=== PATIENT | female | born 1990 | race Caucasian/White ===

== ENCOUNTER → 2016-10-24 | Outpatient (REF) | payer OTHER ==
[~2016-10-24] MED LIST: VICO5TAB OR
== END ==
LOC: M LAB REF 14:53
PROVIDERS: ATTEND Physician Assistant
DX: R30.0 Dysuria (principal)

== ENCOUNTER → 2016-12-06 | Outpatient (REF) | payer OTHER | LOC: M LAB REF 20:46 | PROVIDERS: ATTEND Physician Assistant | DX: R30.0 Dysuria (principal) ==

== ENCOUNTER 2017-04-30 21:22 | Emergency (ER) | payer OTHER ==
[~2017-04-30] VITALS: Ht 162.6 cm; Wt 96.5 kg
[2017-04-30 21:22] VITALS: BP 137/83
[2017-04-30] MEDS ORDERED: EXCETAB81 PO (21:33)
[2017-04-30] MEDS ORDERED: AUGM875T28 PO (21:33)
[2017-04-30 22:55] LABS: BASO % 0.4 % (0.0-1.0); EOS # 0.1 K/mm3 (0.0-0.50); EOS % 1.4 % (0.0-3.0); LARGE UNSTAINED CELL # 0.1 K/mm3 (0.0-0.4); LARGE UNSTAINED CELL % 1.3 % (0.0-4.0); LYMPH # 2.4 K/mm3 (1.5-6.5); LYMPH % 22.4 % (24.0-44.0); MEAN CORPUSCULAR HEMOGLOBIN 26.1 pg (27.0-33.0); MEAN CORPUSCULAR HGB CONC 33.3 g/dl (32.0-36.5); MEAN CORPUSCULAR VOLUME 78.3 fl (80.0-96.0); MONO # 0.3 K/mm3 (0.0-0.8); MONO % 3.4 % (0.0-5.0); NEUTROPHILS # 7.1 K/mm3 (1.8-7.7); NEUTROPHILS % 71.1 % (36.0-66.0); PLATELET COUNT, AUTOMATED 224 k/mm3 (150-450); RED CELL DISTRIBUTION WIDTH 14.6 % (11.5-14.5)
--- NOTE | 2017-04-30 23:00 | REPUSA ---
Clinical history: Pain. Findings: Real-time transabdominal ultrasound images of the pelvis were obtained. There is a single l jimmie intrauterine . The crown rump length measures 1.1 cm. heart rate measures 143 bpm. There is no evidence of a subchorionic hemorrhage. There is a complex hypoechoic lesion in the left ovary, measuring 3.4 x 1.9 x 2.2 cm. The surrounding pelvic structures are unremarkable. There is no evidence of free fluid. Impression: 1. Single live intrauterine measuring 7 weeks 2 days by ultrasound measurements. hear t rate measures 143 bpm. 2. Left ovarian corpus luteum cyst.
[2017-04-30 23:45] LABS: ANION GAP 10 MEQ/L (8-16); BLOOD UREA NITROGEN 9 MG/DL (7-18); CALCIUM LEVEL 9.1 MG/DL (8.5-10.1); CARBON DIOXIDE LEVEL 23 MEQ/L (21-32); CHLORIDE LEVEL 101 MEQ/L (98-107); CREATININE FOR GFR 0.85 MG/DL (0.55-1.02); GLOMERULAR FILTRATION RATE > 60.0 (>60); GLUCOSE, FASTING 83 MG/DL (70-105); HCG, SERUM QUANTITATIVE 95136 MIU/ML; POTASSIUM SERUM 3.4 MEQ/L (3.5-5.1); SODIUM LEVEL 134 MEQ/L (136-145)
[2017-04-30] MEDS ORDERED: FLAG500T PO (23:56)
[2017-04-30] MEDS ORDERED: MACR100C43 PO (23:56)
[2017-05-01] MEDS ORDERED: NITROFURANTOIN (MACROBID) 100 MG CAP PO ONE
[2017-05-01] MEDS ORDERED: metroNIDAZOLE (FLAGYL) 500 MG TAB PO ONE
[2017-08-13] MEDS ORDERED: PRENTAB9 PO (02:51)
== END 2017-05-01 00:08 | disposition home or self-care (01) ==
LOC: M ED 21:22
DX: O99.89 Other specified diseases and conditions complicating pregnancy, childbirth and the puerperium (principal); N30.00 Acute cystitis without hematuria; N89.8 Other specified noninflammatory disorders of vagina; A59.9 Trichomoniasis, unspecified; Z3A.00 Weeks of gestation of pregnancy not specified; N83.12 Corpus luteum cyst of left ovary

== ENCOUNTER → 2017-06-14 | Outpatient (REF) | payer OTHER ==
[~2017-06-14] MED LIST changes: +AUGM875T28 PO; +EXCETAB81 PO; +FLAG500T PO; +MACR100C43 PO; +PRENTAB9 PO
== END ==
LOC: M LAB REF 19:15
PROVIDERS: ATTEND Physician Assistant
DX: N39.0 Urinary tract infection, site not specified (principal)

== ENCOUNTER 2017-07-05 00:39 | Emergency (ER) | payer OTHER ==
[~2017-07-05] VITALS: Ht 162.6 cm; Wt 90.0 kg
[~2017-07-05 00:39] MED LIST changes: -PRENTAB9 PO
--- NOTE | 2017-07-05 03:20 | REPUSA ---
CLINICAL HISTORY: Spotting. TECHNIQUE: Realtime sonographic images were obtained in multiple projections via TA approach. The exa mination was performed by the electroplating laborer and still images were submitted for interpretation. COMMENTS: Single, live intrauterine gestation. Transverse presentation. head is there to the maternal left position. The motion was identified. heart rate 150 beats per minute. Anterior placenta. Amniotic fluid appears within normal limits. No maternal adnexa or cul-de-sac abnormality. Estimated gestation age is 17 weeks. Estimated delivery date on 12/13/2017. Suboptimal evaluation of the facial profile/spine secondary to patient's age and position. IMPRESSION: Single, live intrauterine gestation. No abnormality is seen. Thank you for your kind referral of this patient.
[2017-07-05 03:21] VITALS: BP 115/73
[2017-08-13] MEDS ORDERED: PRENTAB9 PO (02:51)
== END 2017-07-05 03:36 | disposition home or self-care (01) ==
LOC: M ED 00:39
DX: O20.0 Threatened abortion (principal); Z3A.15 15 weeks gestation of pregnancy

== ENCOUNTER → 2017-08-13 | Outpatient (CLI) | payer OTHER ==
[~2017-08-13] VITALS: Ht 162.6 cm; Wt 93.0 kg
[~2017-08-13] MED LIST changes: +PRENTAB9 PO
[2017-08-13 02:11] VITALS: BP 112/68
== END ==
LOC: M LDO 01:48
PROVIDERS: ATTEND Obstetrics & Gynecology
DX: O26.892 Other specified pregnancy related conditions, second trimester (principal); Z3A.00 Weeks of gestation of pregnancy not specified

== ENCOUNTER → 2017-08-14 | Outpatient (REF) | payer OTHER ==
[2017-08-16 10:27] LABS: HBsAg Prenatal NEGATIVE (NEGATIVE)
== END ==
LOC: M LAB REF 16:18
PROVIDERS: ATTEND Obstetrics & Gynecology
DX: Z34.90 Encounter for supervision of normal pregnancy, unspecified, unspecified trimester (principal)

== ENCOUNTER → 2017-08-27 | Outpatient (REF) | payer OTHER ==
[~2017-08-27] MED LIST changes: +ACET50TA PO; +AMOX875T PO
== END ==
LOC: M LAB REF 17:01
PROVIDERS: ATTEND Physician Assistant
DX: R30.0 Dysuria (principal)

== ENCOUNTER 2017-09-02 20:18 | Outpatient (CLI) | payer OTHER ==
[~2017-09-02] VITALS: Ht 162.6 cm; Wt 94.2 kg
[~2017-09-02 20:18] MED LIST changes: -ACET50TA PO; -AMOX875T PO
[2017-09-02] MEDS ORDERED: ACET50TA PO (20:55)
[2017-09-02] MEDS ORDERED: AMOX875T PO (20:57)
[2017-09-02 21:34] VITALS: BP 124/73
== END 2017-09-02 21:45 | disposition home or self-care (01) ==
LOC: M LDO 20:18
PROVIDERS: ATTEND Obstetrics & Gynecology
DX: O26.852 Spotting complicating pregnancy, second trimester (principal); Z3A.25 25 weeks gestation of pregnancy; O23.42 Unspecified infection of urinary tract in pregnancy, second trimester

== ENCOUNTER → 2017-11-12 | Outpatient (REF) | payer OTHER | LOC: M LAB REF 13:32 | DX: Z34.83 Encounter for supervision of other normal pregnancy, third trimester (principal); Z3A.35 35 weeks gestation of pregnancy ==

== ENCOUNTER 2017-12-05 05:35 | Inpatient (IN) | payer OTHER ==
[2017-12-05] MEDS: LR 1,000 ML IV ×5 (06:00→16:46)
[2017-12-05 06:50] LABS: BASO # 0.1 10^3/uL (0.0-0.2); BASO % 0.4 % (0.0-1.0); EOS # 0.1 10^3/uL (0.0-0.50); EOS % 0.5 % (0.0-3.0); HEMATOCRIT 34.7 % (36.0-47.0); HEMOGLOBIN 10.8 g/dl (12.0-16.0); IMMATURE GRANULOCYTE % 0.9 % (0-3.0); LYMPH # 2.3 10^3/uL (1.5-6.5); LYMPH % 20.7 % (24.0-44.0); MEAN CORPUSCULAR HGB CONC 31.1 g/dl (32.0-36.5); MEAN CORPUSCULAR VOLUME 77.1 fl (80.0-96.0); MONO # 0.9 10^3/uL (0.0-0.8); MONO % 7.8 % (0.0-5.0); NEUTROPHILS # 7.8 10^3/uL (1.8-7.7); NEUTROPHILS % 69.7 % (36.0-66.0); PLATELET COUNT, AUTOMATED 176 10^3/uL (150-450); RED CELL DISTRIBUTION WIDTH 17.2 % (11.5-14.5); WHITE BLOOD COUNT 11.2 10^3/uL (4.0-10.0)
[2017-12-05] MEDS: BICITRA 30ML SOLN UDC PO (11:41)
[2017-12-05] MEDS ORDERED: MEASLES,MUMPS,RUBELLA VACCINE INJ (MMR-II) (90707) SC (12:15)
[2017-12-05] MEDS ORDERED: NORCO, ANEXSIA 5/325MG TABLET (HYDROcodone/ACETAMINOPHEN) PO (12:15)
[2017-12-05] MEDS ORDERED: RHOGAM 300 MCG (1500 IU) INJ (J2790) IM (12:15)
[2017-12-05] MEDS ORDERED: MOM 30ML SUSPENSION UDC PO (12:15)
[2017-12-05] MEDS ORDERED: METHYLERGONOVINE MALEATE 0.2 MG TAB PO (12:15)
[2017-12-05] MEDS ORDERED: METOCLOPRAMIDE INJ 10MG/2ML VIAL (J2765) IV ×2 (12:16→13:45)
[2017-12-05] MEDS ORDERED: NALOXONE INJ 0.4 MG/1 ML VIAL (J2310) IV ×2 (12:16)
[2017-12-05] MEDS ORDERED: NALBUPHINE HCL 10 MG/ML AMP (J2300) IV (12:16)
[2017-12-05] MEDS ORDERED: ONDANSETRON 4MG/2ML VIAL (J2405) IV ×2 (12:16→13:45)
[2017-12-05] MEDS ORDERED: MORPHINE PRES-FREE INJ 10 MG/10 ML VIAL (J2274) As Ordered (12:31)
[2017-12-05] MEDS ORDERED: KETOROLAC 60 MG/2 ML VIAL (J1885) As Ordered (12:31)
[2017-12-05] MEDS ORDERED: OXYTOCIN INJ 10 UNITS/ML VIAL (J2590) As Ordered (12:31)
[2017-12-05] MEDS ORDERED: ePHEDrine SULFATE 25 MG/5 ML(5MG/ML) SYRINGE As Ordered (12:31)
[2017-12-05] MEDS ORDERED: PHENYLephrine HCL 500 MCG/5 ML (100MCG/ML) SYRINGE (J2370) As Ordered (12:31)
[2017-12-05] MEDS ORDERED: ONDANSETRON 4MG/2ML VIAL (J2405) As Ordered (12:31)
[2017-12-05 13:08] LABS: CORD GAS ABE A -3.8; CORD GAS HCO3 A 24.1 MEQ/L; CORD GAS O2 SAT A 46.4 %; CORD GAS PCO2 A 54.6 mmHg; CORD GAS PH A 7.263 UNITS; CORD GAS SBC A 20.1 MEQ/L; CORD GAS TCO2 A 25.8 MEQ/L
[2017-12-05 13:11] LABS: CORD GAS ABE V -5.1; CORD GAS HCO3 V 20.9 MEQ/L; CORD GAS O2 SAT V 58.5 %; CORD GAS PCO2 V 42.1 mmHg; CORD GAS PH V 7.314 UNITS; CORD GAS PO2 V 26.8 mmHg; CORD GAS SBC V 19.4 MEQ/L; CORD GAS TCO2 V 22.2 MEQ/L
[2017-12-05] MEDS ORDERED: fentaNYL 100 MCG/2 ML INJECTION (J3010) IV (13:45)
[2017-12-05] MEDS ORDERED: PERCOCET 5MG/325MG TAB PO (13:45)
[2017-12-05] MEDS ORDERED: diphenhydrAMINE INJ 50MG/ML VIAL (J1200) IV (13:45)
[2017-12-05] MEDS ORDERED: KETOROLAC 30 MG/ML VIAL (J1885) IV (13:45)
[2017-12-05] MEDS ORDERED: MEPERIDINE INJ 25 MG/ML VIAL (J2175) IV (13:45)
[2017-12-05] MEDS: DOCUSATE SODIUM 100 MG CAP PO ×2 (16:44→21:46)
[2017-12-05] MEDS: PRENATAL VITAMINS CHEWABLE TABLET PO (16:45)
[2017-12-05] MEDS: IBUPROFEN 800 MG TAB PO (21:47)
[2017-12-06] MEDS: IBUPROFEN 800 MG TAB PO ×3 (06:33→21:44)
[2017-12-06] MEDS ORDERED: NORCO, ANEXSIA 5/325MG TABLET (HYDROcodone/ACETAMINOPHEN) PO (07:15)
[2017-12-06 07:58] LABS: HEMATOCRIT 28.4 % (36.0-47.0); MEAN CORPUSCULAR HEMOGLOBIN 23.9 pg (27.0-33.0); MEAN CORPUSCULAR HGB CONC 30.6 g/dl (32.0-36.5); PLATELET COUNT, AUTOMATED 161 10^3/uL (150-450); RED BLOOD COUNT 3.64 10^6/uL (4.00-5.40); RED CELL DISTRIBUTION WIDTH 17.2 % (11.5-14.5); WHITE BLOOD COUNT 11.4 10^3/uL (4.0-10.0)
[2017-12-06 08:07] LABS: HEMOGLOBIN 8.7 g/dl (12.0-16.0)
[2017-12-06] MEDS: DOCUSATE SODIUM 100 MG CAP PO ×2 (09:49→21:43)
[2017-12-06] MEDS: PRENATAL VITAMINS CHEWABLE TABLET PO (09:49)
[2017-12-06] MEDS: NORCO, ANEXSIA 5/325MG TABLET (HYDROcodone/ACETAMINOPHEN) PO ×2 (12:34→20:15)
[2017-12-06] MEDS: LR 1,000 ML IV ×4 (19:29→22:20)
[2017-12-07] MEDS: LR 1,000 ML IV (04:07)
[2017-12-07] MEDS: IBUPROFEN 800 MG TAB PO ×2 (06:00→14:34)
[2017-12-07] MEDS: DOCUSATE SODIUM 100 MG CAP PO (08:21)
[2017-12-07] MEDS: PRENATAL VITAMINS CHEWABLE TABLET PO (08:21)
[2017-12-07] MEDS: medroxyPROGESTERone ACET IM SUSP 150 MG/ML VIAL (J1050) IM (13:24)
[2017-12-07] MEDS ORDERED: ADACEL/BOOSTRIX VACCINE (DIPHTH/PERTUSS/ACELL/TETANUS)0.5ML SYR (90715) IM (14:45)
== END 2017-12-07 14:56 | disposition home or self-care (01) | DRG 540 ==
LOC: M LDI 05:35 → M OBS 15:07
PROVIDERS: Obstetrics & Gynecology
PROC: 10D00Z1 Extraction of Products of Conception, Low, Open Approach (ICD-10-PCS; principal; 2017-12-05 07:30)
DX: O34.211 Maternal care for low transverse scar from previous cesarean delivery (principal); O99.824 Streptococcus B carrier state complicating childbirth; Z37.0 Single live birth; Z3A.39 39 weeks gestation of pregnancy

== ENCOUNTER 2018-02-23 22:12 | Emergency (ER) | payer OTHER | END 2018-02-24 00:11 | disposition home or self-care (01) | LOC: M ED 02-24 00:11 | DX: K08.89 Other specified disorders of teeth and supporting structures (principal); F41.1 Generalized anxiety disorder; F17.210 Nicotine dependence, cigarettes, uncomplicated; Z79.2 Long term (current) use of antibiotics | CPT/HCPCS: 99283 ==

== ENCOUNTER 2018-03-26 23:04 | Emergency (ER) | payer OTHER ==
[2018-03-27] MEDS: MAGNESIUM CITRATE 300 ML BTL PO (00:15)
== END 2018-03-27 00:25 | disposition home or self-care (01) ==
LOC: M ED 03-27 00:25
DX: K62.5 Hemorrhage of anus and rectum (principal); K59.00 Constipation, unspecified; F41.9 Anxiety disorder, unspecified; Z79.2 Long term (current) use of antibiotics
CPT/HCPCS: 74019

== ENCOUNTER 2018-04-04 19:26 | Emergency (ER) | payer OTHER | END 2018-04-04 19:30 | disposition home or self-care (01) | LOC: M ED 19:26 | DX: R07.89 Other chest pain (principal); R00.0 Tachycardia, unspecified; K21.9 Gastro-esophageal reflux disease without esophagitis; F41.9 Anxiety disorder, unspecified | CPT/HCPCS: 93005 ==

== ENCOUNTER 2018-04-06 17:11 | Emergency (ER) | payer OTHER | END 2018-04-06 19:29 | disposition home or self-care (01) | LOC: M ED 17:11 | DX: R07.89 Other chest pain (principal); F41.9 Anxiety disorder, unspecified; R00.0 Tachycardia, unspecified; R94.31 Abnormal electrocardiogram [ECG] [EKG]; Z87.891 Personal history of nicotine dependence; Z79.899 Other long term (current) drug therapy | CPT/HCPCS: 93005 ==

== ENCOUNTER → 2018-04-07 | Outpatient (REF) | payer OTHER ==
[2018-04-07 19:51] LABS: BASO # 0.1 10^3/uL (0.0-0.2); EOS # 0.1 10^3/uL (0.0-0.50); EOS % 0.8 % (0.0-3.0); HEMATOCRIT 43.9 % (36.0-47.0); HEMOGLOBIN 13.7 g/dl (12.0-15.5); IMMATURE GRANULOCYTE % 0.3 % (0-3.0); LYMPH # 2.2 10^3/uL (1.5-6.5); LYMPH % 28.1 % (24.0-44.0); MEAN CORPUSCULAR HEMOGLOBIN 23.5 pg (27.0-33.0); MEAN CORPUSCULAR HGB CONC 31.2 g/dl (32.0-36.5); MEAN CORPUSCULAR VOLUME 75.2 fl (80.0-96.0); MONO # 0.5 10^3/uL (0.0-0.8); MONO % 6.2 % (0.0-5.0); NEUTROPHILS # 5.1 10^3/uL (1.8-7.7); NEUTROPHILS % 63.6 % (36.0-66.0); PLATELET COUNT, AUTOMATED 217 10^3/uL (150-450); RED BLOOD COUNT 5.84 10^6/uL (4.00-5.40); RED CELL DISTRIBUTION WIDTH 16.8 % (11.5-14.5)
[2018-04-07 20:15] LABS: ALBUMIN 4.5 GM/DL (3.2-5.2); ALBUMIN/GLOBULIN RATIO 1.13 (1.00-1.93); ALKALINE PHOSPHATASE 102 U/L (45-117); ALT/SGPT 51 U/L (12-78); ANION GAP 14 MEQ/L (8-16); AST/SGOT 23 U/L (7-37); BILIRUBIN,TOTAL 0.5 MG/DL (0.2-1.0); BLOOD UREA NITROGEN 10 MG/DL (7-18); CALCIUM LEVEL 9.6 MG/DL (8.5-10.1); CARBON DIOXIDE LEVEL 22 MEQ/L (21-32); CHLORIDE LEVEL 106 MEQ/L (98-107); CHOLESTEROL LEVEL 150 MG/DL (<200); CHOLESTEROL RISK RATIO 3.846 (<5); CPK CREATINE PHOSPHOKINASE 61 U/L (26-192); CREATININE FOR GFR 0.91 MG/DL (0.55-1.30); GLOMERULAR FILTRATION RATE > 60.0 (>60); GLUCOSE, FASTING 75 MG/DL (70-100); HDL CHOLESTEROL 39 MG/DL (>40); LDL CHOLESTEROL 96.6 MG/DL (<100); NON-HDL-C 111 MG/DL; POTASSIUM SERUM 4.2 MEQ/L (3.5-5.1); SODIUM LEVEL 142 MEQ/L (136-145); TOTAL PROTEIN 8.5 GM/DL (6.4-8.2); TRIGLYCERIDES LEVEL 72 MG/DL (<150); TROPONIN I < 0.02 NG/ML (< 0.10)
[2018-04-07 20:23] LABS: ESTIMATED AVERAGE GLUCOSE 103 MG/DL (60-110); HEMOGLOBIN A1c 5.2 %
== END ==
LOC: M LAB REF 17:52
DX: R07.9 Chest pain, unspecified (principal)

== ENCOUNTER 2018-04-08 22:42 | Emergency (ER) | payer OTHER ==
[2018-04-08 23:41] LABS: BASO # 0.1 10^3/uL (0.0-0.2); BASO % 0.9 % (0.0-1.0); EOS # 0.1 10^3/uL (0.0-0.50); EOS % 0.6 % (0.0-3.0); HEMATOCRIT 41.6 % (36.0-47.0); HEMOGLOBIN 13.4 g/dl (12.0-15.5); IMMATURE GRANULOCYTE % 0.2 % (0-3.0); LYMPH # 2.3 10^3/uL (1.5-6.5); LYMPH % 27.3 % (24.0-44.0); MEAN CORPUSCULAR HEMOGLOBIN 23.8 pg (27.0-33.0); MEAN CORPUSCULAR HGB CONC 32.2 g/dl (32.0-36.5); MEAN CORPUSCULAR VOLUME 73.9 fl (80.0-96.0); MONO # 0.6 10^3/uL (0.0-0.8); MONO % 6.7 % (0.0-5.0); NEUTROPHILS # 5.4 10^3/uL (1.8-7.7); NEUTROPHILS % 64.3 % (36.0-66.0); PLATELET COUNT, AUTOMATED 219 10^3/uL (150-450); RED BLOOD COUNT 5.63 10^6/uL (4.00-5.40); RED CELL DISTRIBUTION WIDTH 16.1 % (11.5-14.5); WHITE BLOOD COUNT 8.5 10^3/uL (4.0-10.0)
[2018-04-08 23:59] LABS: CONTROL LINE HCG INT CTR LINE PRESENT; HCG, SERUM QUALITATIVE NEGATIVE (NEGATIVE)
[2018-04-08 23:59] LABS: D-DIMER QUANT 513.2 ng/ml (<500)
[2018-04-09 00:10] LABS: ALBUMIN 4.2 GM/DL (3.2-5.2); ALBUMIN/GLOBULIN RATIO 0.95 (1.00-1.93); ALKALINE PHOSPHATASE 94 U/L (45-117); ALT/SGPT 45 U/L (12-78); ANION GAP 8 MEQ/L (8-16); AST/SGOT 19 U/L (7-37); BILIRUBIN,DIRECT < 0.1 MG/DL (0.0-0.2); BILIRUBIN,TOTAL 0.3 MG/DL (0.2-1.0); BLOOD UREA NITROGEN 14 MG/DL (7-18); CARBON DIOXIDE LEVEL 24 MEQ/L (21-32); CHLORIDE LEVEL 108 MEQ/L (98-107); CK-MB VALUE MASS < 1.0 NG/ML (<3.6); CPK CREATINE PHOSPHOKINASE 51 U/L (26-192); CREATININE FOR GFR 0.99 MG/DL (0.55-1.30); GLOMERULAR FILTRATION RATE > 60.0 (>60); GLUCOSE, FASTING 90 MG/DL (70-100); LIPASE 149 U/L (73-393); MB/CK RELATIVE INDEX 1.96 (< OR =4); POTASSIUM SERUM 3.6 MEQ/L (3.5-5.1); SODIUM LEVEL 140 MEQ/L (136-145); TOTAL PROTEIN 8.6 GM/DL (6.4-8.2); TROPONIN I < 0.02 NG/ML (< 0.10)
[2018-04-09] MEDS ORDERED: ISOVUE-370 76% 100ML VIAL (Q9967) As Ordered (00:33)
== END 2018-04-09 03:08 | disposition home or self-care (01) ==
LOC: M ED 22:42
DX: M54.9 Dorsalgia, unspecified (principal); R00.0 Tachycardia, unspecified; K75.3 Granulomatous hepatitis, not elsewhere classified; D73.89 Other diseases of spleen; F41.9 Anxiety disorder, unspecified; Z87.891 Personal history of nicotine dependence
CPT/HCPCS: Q9967

== ENCOUNTER → 2018-04-10 | Outpatient (REF) | payer OTHER ==
[2018-04-10 19:52] LABS: RHEUMATOID FACTOR QUANT < 10.0 IU/ML (<15.0)
[2018-04-10 19:52] LABS: C REACTIVE PROTEIN QUANTITATIV 0.39 MG/DL (0.00-0.30)
[2018-04-10 20:11] LABS: ERYTHROCYTE SEDIMENTATION RATE 5 mm/hr (0-20)
[2018-04-15 00:08] LABS: ANGIOTENSIN 1 CONVERTING ENZYM 33 U/L (14-82); CYCLIC CITRULLINATED PEPTIDE 4 units (0-19)
[2018-04-16 00:09] LABS: ANCA-ATYPICAL <1:20 titer (Neg:<1:20); ANTI DOUBLE STRAND-DNA AB <1 IU/mL (0-9); ANTINUCLEAR ANTIBODIES DIRECT Negative (Negative); CYTOPLASMIC NEUTROP AB ANCA-C <1:20 titer (Neg:<1:20); PERINUCLEAR AB ANCA-P <1:20 titer (Neg:<1:20)
== END ==
LOC: M LAB REF 18:57
DX: D86.89 Sarcoidosis of other sites (principal)
CPT/HCPCS: 82164

== ENCOUNTER → 2018-04-18 | Outpatient (REF) | payer OTHER ==
[2018-04-18 21:53] LABS: CHLAMYDIA DNA AMPLIFICATION NEGATIVE (NEGATIVE); GC DNA AMPLIFICATION NEGATIVE (NEGATIVE)
== END ==
LOC: M SFHCLERA 15:52
DX: N89.8 Other specified noninflammatory disorders of vagina (principal)

== ENCOUNTER 2018-04-23 17:33 | Emergency (ER) | payer OTHER ==
[2018-04-23] MEDS: NS 1,000 ML IV (19:41)
[2018-04-23 19:54] LABS: BASO # 0.1 10^3/uL (0.0-0.2); BASO % 0.6 % (0.0-1.0); EOS # 0.3 10^3/uL (0.0-0.50); EOS % 3.1 % (0.0-3.0); HEMATOCRIT 44.1 % (36.0-47.0); HEMOGLOBIN 13.7 g/dl (12.0-15.5); IMMATURE GRANULOCYTE % 0.2 % (0-3.0); LYMPH # 2.2 10^3/uL (1.5-6.5); MEAN CORPUSCULAR HEMOGLOBIN 23.5 pg (27.0-33.0); MEAN CORPUSCULAR HGB CONC 31.1 g/dl (32.0-36.5); MEAN CORPUSCULAR VOLUME 75.5 fl (80.0-96.0); MONO # 0.5 10^3/uL (0.0-0.8); MONO % 6.7 % (0.0-5.0); NEUTROPHILS # 5.1 10^3/uL (1.8-7.7); NEUTROPHILS % 62.4 % (36.0-66.0); PLATELET COUNT, AUTOMATED 199 10^3/uL (150-450); RED BLOOD COUNT 5.84 10^6/uL (4.00-5.40); RED CELL DISTRIBUTION WIDTH 16.3 % (11.5-14.5); WHITE BLOOD COUNT 8.1 10^3/uL (4.0-10.0)
[2018-04-23 20:59] LABS: ALBUMIN 3.8 GM/DL (3.2-5.2); ALBUMIN/GLOBULIN RATIO 0.97 (1.00-1.93); ALKALINE PHOSPHATASE 80 U/L (45-117); ALT/SGPT 36 U/L (12-78); ANION GAP 9 MEQ/L (8-16); AST/SGOT 15 U/L (7-37); BILIRUBIN,DIRECT < 0.1 MG/DL (0.0-0.2); BILIRUBIN,TOTAL 0.3 MG/DL (0.2-1.0); BLOOD UREA NITROGEN 8 MG/DL (7-18); CALCIUM LEVEL 8.5 MG/DL (8.5-10.1); CARBON DIOXIDE LEVEL 25 MEQ/L (21-32); CHLORIDE LEVEL 110 MEQ/L (98-107); CPK CREATINE PHOSPHOKINASE 48 U/L (26-192); GLUCOSE, FASTING 71 MG/DL (70-100); INR 1.09; LIPASE 151 U/L (73-393); PARTIAL THROMBOPLASTIN TIME 29.2 SECONDS (25.4-37.6); POTASSIUM SERUM 3.4 MEQ/L (3.5-5.1); PROTHROMBIN TIME 14.3 SECONDS (12.1-14.4); SODIUM LEVEL 144 MEQ/L (136-145); TOTAL PROTEIN 7.7 GM/DL (6.4-8.2); TROPONIN I < 0.02 NG/ML (< 0.10)
[2018-04-23 21:04] LABS: CK-MB VALUE MASS < 1.0 NG/ML (<3.6); CREATININE FOR GFR 0.72 MG/DL (0.55-1.30); FREE T4 1.17 NG/DL (0.76-1.46); GLOMERULAR FILTRATION RATE > 60.0 (>60); MB/CK RELATIVE INDEX 2.08 (< OR =4); NT-PRO BNP 49 PG/ML (<125)
[2018-04-23 22:12] LABS: AMORPHOUS SEDIMENT RFX LARGE (NEGATIVE); CALCIUM OXALATE CRYSTALS RFX LARGE; KETONE, URINE AUTO RFX 1+ mg/dL (NEGATIVE); MUCUS, URINE RFX SMALL (NEGATIVE); NITRITE, URINE AUTO RFX NEGATIVE (NEGATIVE); RBC, URINE AUTO RFX 50 /HPF (0-3); SPECIFIC GRAVITY UR AUTO RFX 1.025 (1.002-1.035); SQUAM EPITHELIAL CELL UR AURFX 1 /HPF (0-6)
[2018-04-23 22:13] LABS: LEUKOCYTE ESTERASE UR AUTO RFX 3+ (NEGATIVE); WBC, URINE AUTO RFX 79 /HPF (0-3)
[2018-04-23] MEDS ORDERED: ISOVUE-370 76% 100ML VIAL (Q9967) As Ordered (22:24)
== END 2018-04-23 23:33 | disposition home or self-care (01) ==
LOC: M ED 17:33
DX: R07.89 Other chest pain (principal); R00.0 Tachycardia, unspecified; F41.9 Anxiety disorder, unspecified; K74.60 Unspecified cirrhosis of liver; M41.9 Scoliosis, unspecified
CPT/HCPCS: Q9967

== ENCOUNTER 2018-05-09 02:56 | Emergency (ER) | payer OTHER ==
[2018-05-09 04:13] LABS: KETONE, URINE AUTO RFX NEGATIVE (NEGATIVE); MUCUS, URINE RFX SMALL (NEGATIVE); NITRITE, URINE AUTO RFX NEGATIVE (NEGATIVE); RBC, URINE AUTO RFX 17 /HPF (0-3); SPECIFIC GRAVITY UR AUTO RFX 1.002 (1.002-1.035); SQUAM EPITHELIAL CELL UR AURFX 6 /HPF (0-6); TRANSITIONAL EPITHELIAL AU RFX 3 /HPF
[2018-05-09 04:29] LABS: LEUKOCYTE ESTERASE UR AUTO RFX 3+ (NEGATIVE); WBC, URINE AUTO RFX 82 /HPF (0-3)
[2018-05-09] MEDS: NITROFURANTOIN (MACROBID) 100 MG CAP PO (05:03)
== END 2018-05-09 05:25 | disposition home or self-care (01) ==
LOC: M ED 02:56
DX: N39.0 Urinary tract infection, site not specified (principal); R05 Cough; F41.1 Generalized anxiety disorder; F17.210 Nicotine dependence, cigarettes, uncomplicated
CPT/HCPCS: 93005

== ENCOUNTER 2018-05-11 19:36 | Emergency (ER) | payer OTHER | END 2018-05-11 21:06 | disposition home or self-care (01) | LOC: M ED 19:36 | DX: M25.512 Pain in left shoulder (principal); R05 Cough; Z79.2 Long term (current) use of antibiotics | CPT/HCPCS: 99282 ==

== ENCOUNTER → 2018-05-13 | Outpatient (REF) | payer OTHER | LOC: M LAB REF 12:58 | DX: N39.0 Urinary tract infection, site not specified (principal) ==

== ENCOUNTER 2018-05-18 20:30 | Emergency (ER) | payer OTHER | END 2018-05-18 21:23 | disposition home or self-care (01) | LOC: M ED 20:30 | DX: F41.9 Anxiety disorder, unspecified (principal) | CPT/HCPCS: 99284 ==

== ENCOUNTER 2018-05-28 16:10 | Emergency (ER) | payer OTHER ==
[2018-05-28 17:49] LABS: KETONE, URINE AUTO RFX NEGATIVE (NEGATIVE); NITRITE, URINE AUTO RFX NEGATIVE (NEGATIVE); RBC, URINE AUTO RFX 2 /HPF (0-3); SPECIFIC GRAVITY UR AUTO RFX 1.002 (1.002-1.035); SQUAM EPITHELIAL CELL UR AURFX 1 /HPF (0-6)
[2018-05-28 17:50] LABS: LEUKOCYTE ESTERASE UR AUTO RFX 3+ (NEGATIVE); WBC, URINE AUTO RFX 11 /HPF (0-3)
== END 2018-05-28 17:39 | disposition home or self-care (01) ==
LOC: M ED 16:10
DX: R00.2 Palpitations (principal); F41.9 Anxiety disorder, unspecified; Z87.891 Personal history of nicotine dependence
CPT/HCPCS: 93005

== ENCOUNTER → 2018-05-28 | Outpatient (CLI) | payer OTHER | LOC: M EKG 17:50 | DX: R00.2 Palpitations (principal); I45.81 Long QT syndrome | CPT/HCPCS: 93225 ==

== ENCOUNTER 2018-07-03 16:08 | Emergency (ER) | payer OTHER ==
[2018-07-03] MEDS: AUGMENTIN 875 MG TAB PO (18:28)
[2018-07-03] MEDS: IBUPROFEN 800 MG TAB PO (18:32)
== END 2018-07-03 18:33 | disposition home or self-care (01) ==
LOC: M ED 16:08
DX: K02.9 Dental caries, unspecified (principal); R51 Headache; F17.210 Nicotine dependence, cigarettes, uncomplicated
CPT/HCPCS: 99282

== ENCOUNTER 2018-07-12 19:12 | Emergency (ER) | payer OTHER ==
[2018-07-12] MEDS: NS 1,000 ML IV (20:00)
[2018-07-12 20:40] LABS: BASO # 0.1 10^3/uL (0.0-0.2); BASO % 0.6 % (0.0-1.0); EOS # 0.3 10^3/uL (0.0-0.50); EOS % 2.8 % (0.0-3.0); HEMATOCRIT 38.2 % (36.0-47.0); HEMOGLOBIN 11.8 g/dl (12.0-15.5); IMMATURE GRANULOCYTE % 0.3 % (0-3.0); LYMPH % 19.6 % (24.0-44.0); MEAN CORPUSCULAR HEMOGLOBIN 23.9 pg (27.0-33.0); MEAN CORPUSCULAR HGB CONC 30.9 g/dl (32.0-36.5); MEAN CORPUSCULAR VOLUME 77.3 fl (80.0-96.0); MONO # 0.5 10^3/uL (0.0-0.8); NEUTROPHILS # 7.2 10^3/uL (1.8-7.7); NEUTROPHILS % 71.7 % (36.0-66.0); PLATELET COUNT, AUTOMATED 234 10^3/uL (150-450); RED BLOOD COUNT 4.94 10^6/uL (4.00-5.40); RED CELL DISTRIBUTION WIDTH 13.9 % (11.5-14.5)
[2018-07-12 20:53] LABS: APPEARANCE, URINE CLEAR (CLEAR); BACTERIA, URINE AUTO NEGATIVE (NEGATIVE); BILIRUBIN, URINE AUTO NEGATIVE (NEGATIVE); BLOOD, URINE BLOOD 2+ (NEGATIVE); COLOR, URINE YELLOW (YELLOW); GLUCOSE, URINE (UA) AUTO NEGATIVE (NEGATIVE); KETONE, URINE AUTO NEGATIVE (NEGATIVE); LEUKOCYTE ESTERASE, URINE AUTO 3+ (NEGATIVE); MUCUS, URINE SMALL (NEGATIVE); NITRITE, URINE AUTO NEGATIVE (NEGATIVE); PROTEIN, URINE AUTO NEGATIVE (NEGATIVE); RBC, URINE AUTO 9 /HPF (0-3); SPECIFIC GRAVITY URINE AUTO 1.025 (1.002-1.035); SQUAMOUS EPITHELIAL CELL UR AU 6 /HPF (0-6); UROBILINOGEN, URINE AUTO 0.2 mg/dL (0.0-2.0); WBC, URINE AUTO 12 /HPF (0-3)
[2018-07-12 20:58] LABS: CONTROL LINE HCG INT CTR LINE PRESENT; HCG, SERUM QUALITATIVE NEGATIVE (NEGATIVE)
[2018-07-12 21:13] LABS: ANION GAP 7 MEQ/L (8-16); BLOOD UREA NITROGEN 15 MG/DL (7-18); CALCIUM LEVEL 8.8 MG/DL (8.5-10.1); CARBON DIOXIDE LEVEL 28 MEQ/L (21-32); CHLORIDE LEVEL 107 MEQ/L (98-107); CREATININE FOR GFR 0.85 MG/DL (0.55-1.30); FREE THYROXINE INDEX 3.8 % (1.3-4.8); GLOMERULAR FILTRATION RATE > 60.0 (>60); GLUCOSE, FASTING 89 MG/DL (70-100); POTASSIUM SERUM 4.1 MEQ/L (3.5-5.1); SODIUM LEVEL 142 MEQ/L (136-145); T UPTAKE 36 % (30-39); THYROXINE (T4) 10.5 UG/DL (4.5-12.0)
== END 2018-07-12 22:02 | disposition home or self-care (01) ==
LOC: M ED 19:12
DX: R94.31 Abnormal electrocardiogram [ECG] [EKG] (principal); F41.9 Anxiety disorder, unspecified; Z87.891 Personal history of nicotine dependence; Z86.79 Personal history of other diseases of the circulatory system
CPT/HCPCS: 93005

== ENCOUNTER 2018-07-19 21:19 | Emergency (ER) | payer OTHER ==
[2018-07-19] MEDS: GI COCKTAIL 50ML BTL(HYOSCYAMINE/MAALOX/LIDOCAINE VISCOUS)(1:3:1) PO (21:45)
[2018-07-19] MEDS: ASPIRIN 81 MG CHEW TABLET PO (21:45)
[2018-07-19 22:09] LABS: BASO # 0.1 10^3/uL (0.0-0.2); BASO % 0.8 % (0.0-1.0); EOS # 0.4 10^3/uL (0.0-0.50); EOS % 5.4 % (0.0-3.0); HEMATOCRIT 36.1 % (36.0-47.0); HEMOGLOBIN 11.1 g/dl (12.0-15.5); IMMATURE GRANULOCYTE % 0.4 % (0-3.0); LYMPH # 2.3 10^3/uL (1.5-6.5); LYMPH % 28.8 % (24.0-44.0); MEAN CORPUSCULAR HEMOGLOBIN 23.7 pg (27.0-33.0); MEAN CORPUSCULAR HGB CONC 30.7 g/dl (32.0-36.5); MEAN CORPUSCULAR VOLUME 77.1 fl (80.0-96.0); MONO # 0.5 10^3/uL (0.0-0.8); MONO % 6.8 % (0.0-5.0); NEUTROPHILS # 4.6 10^3/uL (1.8-7.7); NEUTROPHILS % 57.8 % (36.0-66.0); PLATELET COUNT, AUTOMATED 204 10^3/uL (150-450); RED BLOOD COUNT 4.68 10^6/uL (4.00-5.40); RED CELL DISTRIBUTION WIDTH 13.8 % (11.5-14.5); WHITE BLOOD COUNT 7.9 10^3/uL (4.0-10.0)
[2018-07-19 22:40] LABS: ANION GAP 7 MEQ/L (8-16); BLOOD UREA NITROGEN 18 MG/DL (7-18); CALCIUM LEVEL 8.3 MG/DL (8.5-10.1); CARBON DIOXIDE LEVEL 27 MEQ/L (21-32); CHLORIDE LEVEL 109 MEQ/L (98-107); CK-MB VALUE MASS < 1.0 NG/ML (<3.6); CPK CREATINE PHOSPHOKINASE 50 U/L (26-192); GLOMERULAR FILTRATION RATE > 60.0 (>60); GLUCOSE, FASTING 85 MG/DL (70-100); POTASSIUM SERUM 3.9 MEQ/L (3.5-5.1); SODIUM LEVEL 143 MEQ/L (136-145); TROPONIN I < 0.02 NG/ML (< 0.10)
== END 2018-07-19 22:55 | disposition home or self-care (01) ==
LOC: M ED 21:19
DX: R07.89 Other chest pain (principal)
CPT/HCPCS: 71046

== ENCOUNTER 2018-07-30 14:03 | Emergency (ER) | payer OTHER ==
[2018-07-30] MEDS ORDERED: ISOVUE-370 76% 100ML VIAL (Q9967) As Ordered (19:19)
[2018-07-30] MEDS: ACETAMINOPHEN 325 MG TAB PO (22:15)
== END 2018-07-30 22:20 | disposition home or self-care (01) ==
LOC: M ED 14:03
DX: K59.00 Constipation, unspecified (principal); K64.8 Other hemorrhoids; F41.9 Anxiety disorder, unspecified
CPT/HCPCS: Q9967

== ENCOUNTER 2018-08-14 18:31 | Emergency (ER) | payer MEDICAID, SELFPAY, OTHER ==
[2018-08-14 20:42] LABS: BASO # 0.1 10^3/uL (0.0-0.2); BASO % 0.9 % (0.0-1.0); EOS # 0.4 10^3/uL (0.0-0.50); EOS % 3.9 % (0.0-3.0); HEMATOCRIT 38.8 % (36.0-47.0); HEMOGLOBIN 11.8 g/dl (12.0-15.5); IMMATURE GRANULOCYTE % 0.3 % (0-3.0); LYMPH # 1.9 10^3/uL (1.5-6.5); LYMPH % 21.1 % (24.0-44.0); MEAN CORPUSCULAR HGB CONC 30.4 g/dl (32.0-36.5); MEAN CORPUSCULAR VOLUME 75.6 fl (80.0-96.0); MONO # 0.5 10^3/uL (0.0-0.8); NEUTROPHILS # 6.3 10^3/uL (1.8-7.7); NEUTROPHILS % 68.8 % (36.0-66.0); PLATELET COUNT, AUTOMATED 248 10^3/uL (150-450); RED BLOOD COUNT 5.13 10^6/uL (4.00-5.40); RED CELL DISTRIBUTION WIDTH 13.8 % (11.5-14.5); WHITE BLOOD COUNT 9.2 10^3/uL (4.0-10.0)
[2018-08-14 20:53] LABS: INR 1.03; PROTHROMBIN TIME 13.6 SECONDS (12.1-14.4)
[2018-08-14 20:54] LABS: PARTIAL THROMBOPLASTIN TIME 30.4 SECONDS (25.4-37.6)
[2018-08-14 20:55] LABS: D-DIMER QUANT 1523.2 ng/ml (<500)
[2018-08-14 20:57] LABS: CONTROL LINE HCG INT CTR LINE PRESENT; HCG, SERUM QUALITATIVE NEGATIVE (NEGATIVE)
[2018-08-14 21:12] LABS: ALBUMIN 3.8 GM/DL (3.2-5.2); ALBUMIN/GLOBULIN RATIO 0.97 (1.00-1.93); ALKALINE PHOSPHATASE 121 U/L (45-117); ALT/SGPT 30 U/L (12-78); ANION GAP 5 MEQ/L (8-16); AST/SGOT 9 U/L (7-37); BILIRUBIN,DIRECT < 0.1 MG/DL (0.0-0.2); BILIRUBIN,TOTAL 0.1 MG/DL (0.2-1.0); BLOOD UREA NITROGEN 15 MG/DL (7-18); CALCIUM LEVEL 8.8 MG/DL (8.5-10.1); CARBON DIOXIDE LEVEL 28 MEQ/L (21-32); CHLORIDE LEVEL 108 MEQ/L (98-107); CK-MB VALUE MASS < 1.0 NG/ML (<3.6); CPK CREATINE PHOSPHOKINASE 48 U/L (26-192); CREATININE FOR GFR 0.77 MG/DL (0.55-1.30); FREE T4 1.05 NG/DL (0.76-1.46); GLOMERULAR FILTRATION RATE > 60.0 (>60); GLUCOSE, FASTING 95 MG/DL (70-100); MAGNESIUM LEVEL 2.1 MG/DL (1.8-2.4); MB/CK RELATIVE INDEX 2.08 (< OR =4); PHOSPHORUS LEVEL 3.4 MG/DL (2.5-4.9); POTASSIUM SERUM 3.9 MEQ/L (3.5-5.1); SODIUM LEVEL 141 MEQ/L (136-145); TOTAL PROTEIN 7.7 GM/DL (6.4-8.2); TROPONIN I < 0.02 NG/ML (< 0.10)
[2018-08-14 21:34] LABS: APPEARANCE, URINE HAZY (CLEAR); BACTERIA, URINE AUTO 1+ (NEGATIVE); BILIRUBIN, URINE AUTO NEGATIVE (NEGATIVE); BLOOD, URINE BLOOD NEGATIVE (NEGATIVE); COLOR, URINE YELLOW (YELLOW); GLUCOSE, URINE (UA) AUTO NEGATIVE (NEGATIVE); KETONE, URINE AUTO NEGATIVE (NEGATIVE); LEUKOCYTE ESTERASE, URINE AUTO 3+ (NEGATIVE); MUCUS, URINE SMALL (NEGATIVE); NITRITE, URINE AUTO NEGATIVE (NEGATIVE); PROTEIN, URINE AUTO NEGATIVE (NEGATIVE); RBC, URINE AUTO 31 /HPF (0-3); SPECIFIC GRAVITY URINE AUTO 1.011 (1.002-1.035); SQUAMOUS EPITHELIAL CELL UR AU 6 /HPF (0-6); TRANSITIONAL EPITHELIAL AUTO 1 /HPF; UROBILINOGEN, URINE AUTO 0.2 mg/dL (0.0-2.0); WBC, URINE AUTO 49 /HPF (0-3)
[2018-08-14] MEDS ORDERED: ISOVUE-370 76% 100ML VIAL (Q9967) As Ordered ×2 (21:36)
[2018-08-14] MEDS: NITROFURANTOIN (MACROBID) 100 MG CAP PO ×2 (22:02)
== END 2018-08-14 22:58 | disposition home or self-care (01) ==
LOC: M ED 18:31
DX: R00.2 Palpitations (principal); J06.9 Acute upper respiratory infection, unspecified; K75.3 Granulomatous hepatitis, not elsewhere classified; D73.89 Other diseases of spleen; F41.9 Anxiety disorder, unspecified
CPT/HCPCS: Q9967

== ENCOUNTER → 2018-08-25 | Outpatient (REF) | payer OTHER | LOC: M SFHCLERA 19:12 | DX: R34 Anuria and oliguria (principal) | CPT/HCPCS: 87086 ==

== ENCOUNTER 2018-09-05 17:15 | Emergency (ER) | payer MEDICAID, SELFPAY, OTHER ==
[2018-09-05 17:58] LABS: KETONE, URINE AUTO RFX NEGATIVE (NEGATIVE); NITRITE, URINE AUTO RFX NEGATIVE (NEGATIVE); RBC, URINE AUTO RFX 7 /HPF (0-3); SPECIFIC GRAVITY UR AUTO RFX 1.024 (1.002-1.035); SQUAM EPITHELIAL CELL UR AURFX 6 /HPF (0-6); WBC, URINE AUTO RFX 6 /HPF (0-3)
[2018-09-05 17:59] LABS: LEUKOCYTE ESTERASE UR AUTO RFX 2+ (NEGATIVE)
[2018-09-05 18:42] LABS: BASO # 0.1 10^3/uL (0.0-0.2); EOS # 0.3 10^3/uL (0.0-0.50); HEMOGLOBIN 11.6 g/dl (12.0-15.5); IMMATURE GRANULOCYTE % 0.2 % (0-3.0); LYMPH # 1.9 10^3/uL (1.5-6.5); LYMPH % 23.3 % (24.0-44.0); MEAN CORPUSCULAR HEMOGLOBIN 22.5 pg (27.0-33.0); MEAN CORPUSCULAR HGB CONC 30.5 g/dl (32.0-36.5); MEAN CORPUSCULAR VOLUME 73.6 fl (80.0-96.0); MONO # 0.5 10^3/uL (0.0-0.8); MONO % 6.3 % (0.0-5.0); NEUTROPHILS # 5.5 10^3/uL (1.8-7.7); NEUTROPHILS % 66.2 % (36.0-66.0); PLATELET COUNT, AUTOMATED 256 10^3/uL (150-450); RED BLOOD COUNT 5.16 10^6/uL (4.00-5.40); RED CELL DISTRIBUTION WIDTH 14.3 % (11.5-14.5); WHITE BLOOD COUNT 8.3 10^3/uL (4.0-10.0)
[2018-09-05 18:44] LABS: ALBUMIN 3.9 GM/DL (3.2-5.2); ALBUMIN/GLOBULIN RATIO 0.93 (1.00-1.93); ALKALINE PHOSPHATASE 136 U/L (45-117); ALT/SGPT 59 U/L (12-78); ANION GAP 6 MEQ/L (8-16); AST/SGOT 23 U/L (7-37); BILIRUBIN,DIRECT < 0.1 MG/DL (0.0-0.2); BILIRUBIN,TOTAL 0.2 MG/DL (0.2-1.0); BLOOD UREA NITROGEN 12 MG/DL (7-18); CALCIUM LEVEL 8.7 MG/DL (8.5-10.1); CARBON DIOXIDE LEVEL 27 MEQ/L (21-32); CHLORIDE LEVEL 105 MEQ/L (98-107); CK-MB VALUE MASS < 1.0 NG/ML (<3.6); CPK CREATINE PHOSPHOKINASE 106 U/L (26-192); CREATININE FOR GFR 0.82 MG/DL (0.55-1.30); GLOMERULAR FILTRATION RATE > 60.0 (>60); GLUCOSE, FASTING 88 MG/DL (70-100); MB/CK RELATIVE INDEX 0.94 (< OR =4); POTASSIUM SERUM 3.6 MEQ/L (3.5-5.1); SODIUM LEVEL 138 MEQ/L (136-145); TOTAL PROTEIN 8.1 GM/DL (6.4-8.2); TROPONIN I < 0.02 NG/ML (< 0.10)
[2018-09-05 18:53] LABS: INR 1.04; PROTHROMBIN TIME 13.7 SECONDS (12.1-14.4)
[2018-09-05 19:38] LABS: ERYTHROCYTE SEDIMENTATION RATE 7 mm/hr (0-20)
== END 2018-09-05 20:30 | disposition home or self-care (01) ==
LOC: M ED 17:15
DX: M94.0 Chondrocostal junction syndrome [Tietze] (principal); N39.0 Urinary tract infection, site not specified; F41.9 Anxiety disorder, unspecified; Z87.891 Personal history of nicotine dependence
CPT/HCPCS: 71046

== ENCOUNTER 2019-03-11 15:38 | Emergency (ER) | payer MEDICAID, OTHER ==
[~2019-03-11] VITALS: Ht 162.6 cm; Wt 83.2 kg
[~2019-03-11 15:38] MED LIST changes: +24hr Holter XX; +ACE65ERTAB PO; +AMOX500C PO; +AMOX875T PO; +BENZ200C70 PO; +CIPR-249 PO; +CIPR500S PO; +CLIN150C14 PO; +COLA100C5 PO; +IBUP-1114 PO; +IBUP40TA PO; +IBUP80TA PO; +MAPA500T2 PO; +MIRA3350 PO; +NAPR-885 PO; +NITR100C2; +PERC5TAB12 PO; +[UNRECOGNIZED DRUG - CODE] PO
[2019-03-11] MEDS ORDERED: AMOXICILLIN 500 MG CAP PO ONE (17:45)
[2019-03-11] MEDS ORDERED: AMOX875T (18:18)
[2019-03-11] MEDS ORDERED: AMOX875T PO (18:42)
[2019-03-11 18:45] VITALS: BP 120/79
--- NOTE | 2019-03-11 19:15 | REP ---
LEFT FIRST TOE: Four views of the left first toe performed. There is no acute fracture, dislocation or intrinsic bone disease. IMPRESSION: No fracture or dislocation. Electronically Signed by Benny Jmaison MD 03/16/2019 08:27 A
== END 2019-03-11 18:58 | disposition home or self-care (01) ==
LOC: M ED 15:38
DX: L03.031 Cellulitis of right toe (principal); S90.111A Contusion of right great toe without damage to nail, initial encounter; X58.XXXA Exposure to other specified factors, initial encounter; Y92.89 Other specified places as the place of occurrence of the external cause; Z20.3 Contact with and (suspected) exposure to rabies; F41.9 Anxiety disorder, unspecified

== ENCOUNTER 2019-07-19 01:46 | Emergency (ER) | payer OTHER ==
[~2019-07-19] VITALS: Ht 162.6 cm; Wt 96.8 kg
[~2019-07-19 01:46] MED LIST changes: +AMOX875T
[2019-07-19 01:47] VITALS: BP 131/78
[2019-07-19] MEDS ORDERED: TETANUS/DIPHTHERIA TOX ADSORB ADULT 0.5ML SYR/VIAL (90714) IM ONE (02:30)
== END 2019-07-19 02:41 | disposition home or self-care (01) ==
LOC: M ED 01:46
DX: S61.102A Unspecified open wound of left thumb with damage to nail, initial encounter (principal); X58.XXXA Exposure to other specified factors, initial encounter; Y92.9 Unspecified place or not applicable; Y93.9 Activity, unspecified; Y99.9 Unspecified external cause status

== ENCOUNTER → 2019-07-28 | Outpatient (REF) | payer OTHER | LOC: M SFHCLERA 14:11 | PROVIDERS: ATTEND Nurse Practitioner Family | DX: R30.0 Dysuria (principal) ==

== ENCOUNTER → 2019-08-03 | Outpatient (REF) | payer OTHER | LOC: M SFHCLERA 19:56 | PROVIDERS: ATTEND Nurse Practitioner Family | DX: R30.0 Dysuria (principal) ==

== ENCOUNTER 2019-09-28 21:16 | Emergency (ER) | payer OTHER ==
[~2019-09-28] VITALS: Ht 162.6 cm; Wt 97.7 kg
[2019-09-28 21:17] VITALS: BP 118/72
[2019-09-28] MEDS ORDERED: AMOX500C PO (22:24)
[2019-09-28] MEDS ORDERED: AMOXICILLIN 500 MG CAP PO ONE (22:30)
== END 2019-09-28 22:35 | disposition home or self-care (01) ==
LOC: M ED 21:16
DX: K04.7 Periapical abscess without sinus (principal); Z88.8 Allergy status to other drugs, medicaments and biological substances

== ENCOUNTER → 2020-02-17 | Outpatient (REF) | payer OTHER ==
[2020-02-17 16:31] LABS: APPEARANCE, URINE TURBID (CLEAR); BACTERIA, URINE AUTO NEGATIVE (NEGATIVE); BILIRUBIN, URINE AUTO NEGATIVE (NEGATIVE); BLOOD, URINE BLOOD 1+ (NEGATIVE); COLOR, URINE YELLOW (YELLOW); GLUCOSE, URINE (UA) AUTO NEGATIVE (NEGATIVE); KETONE, URINE AUTO TRACE mg/dL (NEGATIVE); LEUKOCYTE ESTERASE, URINE AUTO 3+ (NEGATIVE); MUCUS, URINE SMALL (NEGATIVE); NITRITE, URINE AUTO NEGATIVE (NEGATIVE); PROTEIN, URINE AUTO 2+ mg/dL (NEGATIVE); RBC, URINE AUTO 0 /HPF (0-3); SPECIFIC GRAVITY URINE AUTO 1.031 (1.002-1.035); SQUAMOUS EPITHELIAL CELL UR AU 14 /HPF (0-6); UROBILINOGEN, URINE AUTO 0.2 mg/dL (0.0-2.0); WBC, URINE AUTO 31 /HPF (0-3)
[2020-02-17 20:10] LABS: CHLAMYDIA DNA AMPLIFICATION NEGATIVE (NEGATIVE); GC DNA AMPLIFICATION NEGATIVE (NEGATIVE)
== END ==
LOC: M LAB REF 16:08
PROVIDERS: ATTEND Nurse Practitioner Family
DX: N39.0 Urinary tract infection, site not specified (principal)

== ENCOUNTER → 2020-03-25 | Outpatient (REF) | payer OTHER ==
[2020-03-25 18:28] LABS: CHLAMYDIA DNA AMPLIFICATION NEGATIVE (NEGATIVE); GC DNA AMPLIFICATION NEGATIVE (NEGATIVE)
== END ==
LOC: M SFHCLERA 13:07
PROVIDERS: ATTEND Physician Assistant
DX: R30.0 Dysuria (principal)

== ENCOUNTER → 2020-04-27 | Outpatient (REF) | payer OTHER ==
[2020-04-27 18:53] LABS: HEMATOCRIT 38.2 % (36.0-47.0); MEAN CORPUSCULAR HEMOGLOBIN 24.3 pg (27.0-33.0); MEAN CORPUSCULAR HGB CONC 31.4 g/dl (32.0-36.5); MEAN CORPUSCULAR VOLUME 77.5 fl (80.0-96.0); PLATELET COUNT, AUTOMATED 206 10^3/uL (150-450); RED BLOOD COUNT 4.93 10^6/uL (4.00-5.40); WHITE BLOOD COUNT 9.3 10^3/uL (4.0-10.0)
[2020-04-27 19:28] LABS: HCG, SERUM QUANTITATIVE 24282 MIU/ML
[2020-04-27 19:58] LABS: HIV 1&2 SCREEN CENTAUR NEGATIVE (NEGATIVE)
== END ==
LOC: M LAB REF 16:39
PROVIDERS: ATTEND Obstetrics & Gynecology
DX: O36.80X0 Pregnancy with inconclusive fetal viability, not applicable or unspecified (principal)

== ENCOUNTER → 2020-07-15 | Outpatient (CLI) | payer OTHER ==
--- NOTE | 2020-07-20 15:10 | REP ---
OBSTETRIC SONOGRAPHY HISTORY: Supervision of for anatomy. COMPARISON: 04/29/2020. FINDINGS: Scanning through the gravid uterus demonstrates a viable single intrauterine gestation in a variable lie. motion is observed and heart rate is recorded at 133 beats per minute. Amniotic fluid is subjectively normal. Closed cervical length is 4.4 cm measured transabdominally. Exam quality is inhibited slightly by patient body habitus and position. spine visualization of the sacrum was less than optimal. The remainder of the spine appeared intact. The following anatomic structures are identified and felt to be unremarkable: cranium and intracranial anatomy, nuchal fold, face and profile, nose and lips, four chamber heart with left and right ventricular outflow tract views, diaphragm, left-sided stomach, abdominal wall cord insertion, right and left kidney, urinary bladder, upper and lower extremities. Three-vessel cord is seen. BIOMETRY CHART: BPD 6.0 cm 24 weeks 3 days Head circumference 23.4 cm 25 weeks 3 days Abdominal circumference 20.6 cm 25 weeks 1 day Femur length 4.7 cm 25 weeks 4 days Humeral length 4.3 cm 26 weeks 0 days AC/HC ratio 1.14 Normal Cephalic index 0.69 (0.70 to 0.86) Estimated weight 797 grams, 1 pound 12 ounces, 52nd percentile for 25 weeks 2 days. IMPRESSION: Viable single intrauterine gestation at 25 weeks 2 days by todays composite sonographic criteria. Estimated date of delivery (UNIQUE) by todays sonography 10/26/2020. anatomic survey was complete except for visualization of the sacral portion of the spine. MTDD
== END ==
LOC: M WHC 13:00
PROVIDERS: ATTEND Advanced Practice Midwife
DX: Z34.82 Encounter for supervision of other normal pregnancy, second trimester (principal); Z36.89 Encounter for other specified antenatal screening; Z3A.25 25 weeks gestation of pregnancy

== ENCOUNTER → 2020-07-21 | Outpatient (REF) | payer OTHER | LOC: M LAB REF 09:31 | PROVIDERS: ATTEND Physician Assistant | DX: N30.01 Acute cystitis with hematuria (principal) ==

== ENCOUNTER → 2020-09-05 | Outpatient (CLI) | payer OTHER ==
--- NOTE | 2020-09-05 21:25 | REP ---
INDICATION: F/U ANATOMY - SACRAL SPINE COMPARISON: 07/15/2020 TECHNIQUE: Transabdominal obstetrical ultrasound with color Doppler evaluation. FINDINGS: Examination demonstrates a single live intrauterine in cephalic presentation. motion is identified by technologist. Placenta is noted posterior and grade 2 without evidence for placenta previa or abruption. Amniotic fluid volume is normal. Cervix measures 3.6 cm in length and appears closed.. Gestational age by LMP 33 weeks 1 day with UNIQUE 10/23/2020. Gestational age by current measurements 33 weeks 4 days with UNIQUE 10/20/2020. FHR equals 143 beats per minute. GABRIELE: 15.9 cm (8.3-24.5) Estimated weight 2207 grams (53rdpercentile). Anatomical assessment demonstrates normal structures including cranium, facial profile, stomach, kidneys/bladder, spine, and three-vessel cord. IMPRESSION: Single live intrauterine in cephalic presentation demonstrating appropriate estimated weight and growth. In conjunction with prior examination anatomical assessment is complete and normal. <Electronically signed by Justin Aldrich > 09/05/20 [id number]
== END ==
LOC: M WHC 13:10
PROVIDERS: ATTEND Obstetrics & Gynecology
DX: Z34.82 Encounter for supervision of other normal pregnancy, second trimester (principal); Z36.89 Encounter for other specified antenatal screening; Z3A.33 33 weeks gestation of pregnancy

== ENCOUNTER → 2020-09-27 | Outpatient (REF) | payer OTHER | LOC: M LAB REF 12:30 | PROVIDERS: ATTEND Obstetrics & Gynecology | DX: Z34.83 Encounter for supervision of other normal pregnancy, third trimester (principal) ==

== ENCOUNTER → 2020-10-08 | Outpatient (CLI) | payer OTHER ==
[~2020-10-08] MED LIST changes: +FERR325T3 PO; +PRENTAB53 PO
== END ==
LOC: M LABSMTC 11:33
PROVIDERS: ATTEND Anesthesiology
DX: Z01.812 Encounter for preprocedural laboratory examination (principal); Z20.828 Contact with and (suspected) exposure to other viral communicable diseases

== ENCOUNTER 2020-10-13 05:33 | Inpatient (IN) | payer OTHER ==
[~2020-10-13] VITALS: Ht 162.6 cm; Wt 103.5 kg
[~2020-10-13 05:33] MED LIST changes: -CLIN150C14 PO; +CLIN150C15 PO
[2020-10-13] MEDS ORDERED: LR 1,000 ML IV SCH ×2 (05:51→09:15)
[2020-10-13] MEDS ORDERED: LACTATED RINGER'S 1000 ML IV STA (05:51)
[2020-10-13] MEDS ORDERED: ceFAZolin SOD 2 GM in IV 1 EA IV ONE (06:00)
[2020-10-13] MEDS ORDERED: BICITRA 30ML SOLN UDC PO ONE (06:00)
[2020-10-13 06:23] VITALS: BP 135/81
[2020-10-13 06:32] LABS: HEMATOCRIT 34.4 % (36.0-47.0); HEMOGLOBIN 10.1 g/dl (12.0-15.5); MEAN CORPUSCULAR HEMOGLOBIN 21.5 pg (27.0-33.0); MEAN CORPUSCULAR HGB CONC 29.4 g/dl (32.0-36.5); MEAN CORPUSCULAR VOLUME 73.2 fl (80.0-96.0); PLATELET COUNT, AUTOMATED 198 10^3/uL (150-450); WHITE BLOOD COUNT 10.5 10^3/uL (4.0-10.0)
[2020-10-13] MEDS ORDERED: ePHEDrine SULFATE 25 MG/5 ML(5MG/ML) SYRINGE As Ordered ONE (07:12)
[2020-10-13] MEDS ORDERED: OXYTOCIN 30 UNITS IN 0.9% NaCl 500ML IV BAG (J2590) As Ordered ONE ×2 (07:12→09:53)
[2020-10-13] MEDS ORDERED: PHENYLephrine 500MCG 5ML (100MCG/ML) SYRINGE As Ordered ONE (07:12)
[2020-10-13] MEDS ORDERED: MORPHINE PRES-FREE INJ 10 MG/10 ML VIAL (J2274) As Ordered ONE (07:12)
[2020-10-13] MEDS ORDERED: ONDANSETRON 4MG/2ML VIAL IV PRN ×2 (07:47→09:15)
[2020-10-13] MEDS ORDERED: diphenhydrAMINE 50MG/ML VIAL (J1200) IV PRN (07:47)
[2020-10-13] MEDS ORDERED: NALOXONE INJ 0.4MG/1ML VIAL (J2310 PER 1MG) IV PRN ×2 (07:47)
[2020-10-13] MEDS ORDERED: NALBUPHINE HCL 10 MG/ML AMP (J2300) IV PRN (07:47)
[2020-10-13] MEDS ORDERED: METOCLOPRAMIDE INJ 10MG/2ML VIAL (J2765 PER 1) IV PRN (07:47)
[2020-10-13] MEDS ORDERED: KETOROLAC 60MG 2ML VIAL As Ordered ONE (07:59)
[2020-10-13 08:24] LABS: CORD GAS HCO3 V 23.1 MEQ/L; CORD GAS O2 SAT V 50.8 %; CORD GAS PCO2 V 54.9 mmHg; CORD GAS PH V 7.242 UNITS; CORD GAS PO2 V 25.9 mmHg; CORD GAS SBC V 19.3 MEQ/L; CORD GAS TCO2 V 24.8 MEQ/L
[2020-10-13 08:27] LABS: CORD GAS ABE A -8.6; CORD GAS HCO3 A 22.6 MEQ/L; CORD GAS O2 SAT A 42.3 %; CORD GAS PH A 7.102 UNITS; CORD GAS PO2 A 25.2 mmHg; CORD GAS SBC A 16.5 MEQ/L; CORD GAS TCO2 A 24.8 MEQ/L
[2020-10-13] MEDS: PRENATAL VITAMINS CHEWABLE TABLET PO SCH (09:00)
[2020-10-13] MEDS ORDERED: OXYTOCIN DRIP 30 UNITS in IV 1 EA IV SCH (09:08)
[2020-10-13] MEDS ORDERED: MEASLES,MUMPS,RUBELLA VACCINE INJ (MMR-II) (90707) SC SCH (09:15)
[2020-10-13] MEDS ORDERED: RHOGAM 300 MCG (1500 IU) INJ (J2790) IM SCH (09:15)
[2020-10-13] MEDS ORDERED: oxyCODONE 5MG TAB PO PRN (09:15)
[2020-10-13] MEDS ORDERED: fentaNYL 100 MCG/2 ML INJECTION (J3010) As Ordered ONE (09:20)
[2020-10-13] MEDS: fentaNYL 100 MCG/2 ML INJECTION (J3010) IV PRN ×2 (09:21→10:05)
--- NOTE | 2020-10-13 09:38 | RO ---
OPERATIVE NOTE DATE OF OPERATION: 10/13/2020 INDICATIONS FOR PROCEDURE: Candida is a 30-year-old female with a history of three prior sections who is being admitted for an elective repeat section and bilateral tubal ligation. PREOPERATIVE DIAGNOSES: 1. Term for elective repeat section. 2. Multiparity desires permanent tubal sterilization. POSTOPERATIVE DIAGNOSES: 1. Term for elective repeat section. 2. Multiparity desires permanent tubal sterilization. PROCEDURES: 1. Repeat section. 2. Revision of old scar. 3. Bilateral salpingectomy. ANESTHESIA: Spinal. SURGEON: Fredy Gonzalez D.O. LINOLEUM LAYER APPRENTICE: Nathaly Bob MD COMPLICATIONS: None. ESTIMATED BLOOD LOSS: 500 mL. FINDINGS: Live male infant occiput transverse position with a nuchal cord. 9 and 9. weight 7 pounds 11 ounces. Placenta delivered manually intact. Both tubes and ovaries appeared to be within normal limits. DESCRIPTION OF PROCEDURE: After obtaining informed consent, the patient was taken to the operating room where spinal anesthetic was found to be adequate. She was then prepped and draped in the usual sterile fashion in the supine position with the help of Dr. Bob. An elliptical incision was made over her old scar and this was carried down to the fascia. The fascia was incised in a midline fashion and carried through laterally. The superior aspect of the fascia was then grasped with the Natalia clamp, tented off, and dissected off the rectus muscle sharply. The inferior aspect was dissected off in a similar fashion. The rectus muscle was in midline fashion and the peritoneal cavity was entered bluntly. A Mobius skin retractor was placed. A low transverse uterine incision was made. The infant was delivered in atraumatic fashion. Nose and mouth bulb suctioned. Cord doubly clamped and cut. The infant was handed over to waiting warmer. Cord blood and cord gas were sent. Placenta removed manually. Uterus cleared of all clot and debris. Uterine incision was then repaired with two separate layers of 0-Vicryl sutures. Attention was then turned to the fallopian tubes where the fimbriated ends were identified. Two large Kellys were used. The fallopian tubes were removed entirely and suture ligating using 3-0 Chromic suture. The opposite side was done in a similar fashion. Vulva was copiously irrigated with normal saline. Attention turned to the peritoneum, which was closed in a running fashion using 2-0 Vicryl suture. Fascia closed in two separate segments of 0-Vicryl sutures. All superficial bleeders coagulated and the skin was then reapproximated in the subcuticular fashion using 3-0 Vicryl and Steri-Strips placed. The patient tolerated the procedure well. She was then transferred to the recovery room in stable condition.
[2020-10-13 10:40] VITALS: BP 130/84
[2020-10-13 11:10] VITALS: BP 120/77
[2020-10-13 13:10] VITALS: BP 119/66
[2020-10-13] MEDS: KETOROLAC 30 MG/ML 1ML VIAL IV SCH ×2 (15:09→21:02)
[2020-10-13 18:00] VITALS: BP 139/83
[2020-10-13 22:00] VITALS: BP 128/81
[2020-10-14 02:00] VITALS: BP 121/78
[2020-10-14] MEDS: KETOROLAC 30 MG/ML 1ML VIAL IV SCH (03:22)
[2020-10-14 06:00] VITALS: BP 120/77
--- NOTE | 2020-10-14 07:11 | IPNPDOC ---
Progress Note Date of Service: Oct 14, 2020 Day#: 1 Progress Note SUBJECT: Doing well without complaints. Ambulating, voiding and pain is well-co ntrolled. Reports minimal lochia. OBJECTIVE: VITAL SIGNS: Within normal limits, afebrile. Alert and oriented times three. Abdomen: Fundus firm at U-2. Soft, NTTP. Incision: Incision clean dry and intact nonerythematous well approximated with Steri-Strips Ext: neg calf tenderness. ASSESSMENT: /postoperative day #1 status post delivery. Recovering in stable condition. PLAN: 1. Continue routine /postoperative care 2. Discharge plans for tomorrow VS, I&O, 24H, Fishbone Vital Signs/I&O Vital Signs Date Time Temp Pulse Resp B/P (MAP) Pulse Ox O2 Delivery O2 Flow Rate FiO2 10/14/20 02:00 98.8 96 18 121/78 (92) 95 Room Air I&O- Last 24 Hours up to 6 AM 10/14/20 06:00 Intake Total 3070 ml Output Total 1440 ml Balance 1630 ml Laboratory Data 24H LABS Laboratory Tests 2 10/13/20 08:14: Cord Venous Blood pH 7.242, Cord Venous Blood PCO2 54.9, Cord Venous Blood PO2 25.9, Cord Venous Blood HCO3 23.1, Cord Venous Blood Total CO2 24.8, Cord Venous Base Excess (Actual) -5.0, Cord Venous Base Excess (Standard) 19.3, Cord Venous Blood Oxygen Saturation 50.8 10/13/20 08:15: Cord Arterial Blood pH 7.102, Cord Arterial Blood PCO2 74.0, Cord Arterial Blood PO2 25.2, Cord Arterial Blood HCO3 22.6, Cord Arterial Blood Total CO2 24.8, Cord Arterial Blood Base Excess -8.6, Cord Arterial Base Excess (Standard 16.5, Cord Arterial Bld Oxygen Saturation 42.3 10/13/20 12:34: Serology Scanned Report Hepatitis B Testing RADHA LEHMAN MD. Oct 14, 2020 07:10
[2020-10-14 08:52] LABS: HEMOGLOBIN 7.2 g/dl (12.0-15.5); MEAN CORPUSCULAR HEMOGLOBIN 21.8 pg (27.0-33.0); MEAN CORPUSCULAR HGB CONC 28.8 g/dl (32.0-36.5); MEAN CORPUSCULAR VOLUME 75.5 fl (80.0-96.0); PLATELET COUNT, AUTOMATED 169 10^3/uL (150-450); RED BLOOD COUNT 3.31 10^6/uL (4.00-5.40)
[2020-10-14] MEDS: PRENATAL VITAMINS CHEWABLE TABLET PO SCH (09:15)
[2020-10-14 10:00] VITALS: BP 130/80
[2020-10-14] MEDS: IBUPROFEN 800 MG TAB PO SCH ×2 (11:38→18:32)
[2020-10-14 14:00] VITALS: BP 119/72
[2020-10-14 18:17] VITALS: BP 137/88
[2020-10-14 22:00] VITALS: BP 117/69
[2020-10-15 02:00] VITALS: BP 111/70
[2020-10-15] MEDS: IBUPROFEN 800 MG TAB PO SCH ×2 (02:45→10:45)
[2020-10-15 06:00] VITALS: BP 111/64
[2020-10-15] MEDS ORDERED: IBUP80TA PO (07:57)
[2020-10-15] MEDS ORDERED: MOM 30ML SUSPENSION UDC PO ONE (08:00)
--- NOTE | 2020-10-15 08:08 | DS.PDOC ---
Discharge Summary General Date of Admission Oct 13, 2020 at 05:33 Date of Discharge 10/15/2020 Discharge Summary PROCEDURES PERFORMED DURING STAY: Repeat and bilateral tubal ligation ADMITTING DIAGNOSES: 1. Previous section at term 2. Satisfied parity DISCHARGE DIAGNOSES: 1. Repeat section at term 2. Satisfied parity, bilateral tubal ligation COMPLICATIONS/CHIEF COMPLAINT: Previous Section X2. HISTORY OF PRESENT ILLNESS: 30yo G 5 now P 3 admitted 10/13/2020 for repeat section. Surgery performed by Dr Gonzalez. HOSPITAL COURSE: Ms Shelley reports adequate pain management. She is out of bed independently. Plans bottle feeding and pumping at home. Tolerating regular diet. Voiding and passing flatus. DISCHARGE MEDICATIONS: Please see below. ALLERGIES: Please see below. PHYSICAL EXAMINATION ON DISCHARGE: VITAL SIGNS: Please see below. GENERAL: No distress HEENT: WNL NECK: Supple CARDIOVASCULAR EXAMINATION: HRR, normotensive RESPIRATORY EXAMINATION: Clear and unlabored ABDOMINAL EXAMINATION: Fundus firm. Wound well approximated, steri strips inta ct. No evidence infection, dehiscence. EXTREMITIES: Equal strength and motion SKIN: Intact NEUROLOGICAL EXAMINATION: Grossly intact PSYCHIATRIC EXAMINATION: Appropriate LABORATORY DATA: Please see below. PROGNOSIS: Good ACTIVITY: As tolerated. Pelvic rest. DIET: As tolerated. DISCHARGE PLAN: Home today. Oral medications. DISPOSITION: Home DISCHARGE INSTRUCTIONS: 1. Continue vitamins. Ibuprofen for discomfort. Pelvic rest. Call with fever, nausea, vomiting, chills, wound exudate, foul lochia, severe chest or leg pain. RTO 2 wks and 6 wks DISCHARGE CONDITION: Stable TIME SPENT ON DISCHARGE: Greater than 10 minutes. Vital Signs/I&Os Vital Signs Date Time Temp Pulse Resp B/P (MAP) Pulse Ox O2 Delivery O2 Flow Rate FiO2 10/15/20 06:00 97.8 85 18 111/64 (80) 98 Room Air Laboratory Data Labs 24H Laboratory Tests 2 10/14/20 08:29: Nucleated Red Blood Cells % (auto) 0.2H CBC/BMP Laboratory Tests 10/14/20 08:29 Discharge Medications Scheduled Ibuprofen (Ibuprofen) 800 Mg Tablet, 800 MG PO Q6H Vit,Calc76/Iron/Folic (Prenatabs Rx Tablet) 1 Each Tablet, 1 TAB PO DAILY, (Reported) Allergies Uncoded Allergies: caution with medications that prolong QTC (Adverse Reaction, Unknown, 09/28/19) Alix Salguero CNM Oct 15, 2020 08:08
[2020-10-15] MEDS: PRENATAL VITAMINS CHEWABLE TABLET PO SCH (10:10)
[2020-10-15] MEDS ORDERED: OXYC1TAB23 PO (11:31)
== END 2020-10-15 13:05 | disposition home or self-care (01) | DRG 540 ==
LOC: M LDI 05:33 → M OBS 10:23
PROVIDERS: ADMIT Obstetrics & Gynecology; ATTEND Obstetrics & Gynecology
PROC: 0UL70ZZ Occlusion of Bilateral Fallopian Tubes, Open Approach (ICD-10-PCS; 2020-10-13)
PROC: 10D00Z1 Extraction of Products of Conception, Low, Open Approach (ICD-10-PCS; principal; 2020-10-13 07:30)
DX: O34.211 Maternal care for low transverse scar from previous cesarean delivery (principal); Z3A.38 38 weeks gestation of pregnancy; Z37.0 Single live birth; O69.81X0 Labor and delivery complicated by cord around neck, without compression, not applicable or unspecified; Z30.2 Encounter for sterilization

== ENCOUNTER 2021-02-11 23:13 | Emergency (ER) | payer OTHER ==
[~2021-02-11] VITALS: Ht 162.6 cm; Wt 101.7 kg
[~2021-02-11 23:13] MED LIST changes: +IBUP1TAB5 PO; -IBUP40TA PO; +OXYC1TAB23 PO
[2021-02-12 00:19] LABS: BASO # 0.1 10^3/uL (0.0-0.2); BASO % 1.3 % (0.0-1.0); EOS # 0.8 10^3/uL (0.0-0.5); EOS % 9.1 % (0.0-3.0); HEMATOCRIT 32.3 % (36.0-47.0); HEMOGLOBIN 9.6 g/dl (12.0-15.5); LYMPH # 3.1 10^3/uL (1.5-5.0); LYMPH % 36.4 % (24.0-44.0); MEAN CORPUSCULAR HEMOGLOBIN 21.1 pg (27.0-33.0); MEAN CORPUSCULAR HGB CONC 29.7 g/dl (32.0-36.5); MONO # 0.6 10^3/uL (0.0-0.8); MONO % 7.4 % (2.0-8.0); NEUTROPHILS # 3.8 10^3/uL (1.5-8.5); NEUTROPHILS % 45.6 % (36.0-66.0); PLATELET COUNT, AUTOMATED 227 10^3/uL (150-450); RED BLOOD COUNT 4.55 10^6/uL (4.00-5.40); WHITE BLOOD COUNT 8.4 10^3/uL (4.0-10.0)
[2021-02-12 00:30] LABS: ALBUMIN 3.5 GM/DL (3.2-5.2); ALT/SGPT 32 U/L (12-78); BILIRUBIN,DIRECT < 0.1 MG/DL (0.0-0.2); BILIRUBIN,TOTAL 0.1 MG/DL (0.2-1.0); LIPASE 142 U/L (73-393); TOTAL PROTEIN 7.4 GM/DL (6.4-8.2)
[2021-02-12 01:05] VITALS: BP 128/86
== END 2021-02-12 01:10 | disposition left against medical advice (07) ==
LOC: M ED 23:13
DX: R10.2 Pelvic and perineal pain (principal); Z53.9 Procedure and treatment not carried out, unspecified reason; Z79.899 Other long term (current) drug therapy

== ENCOUNTER 2021-02-19 14:01 | Emergency (ER) | payer OTHER ==
[~2021-02-19] VITALS: Ht 162.6 cm; Wt 100.0 kg
[2021-02-19 14:15] VITALS: BP 125/82
[2021-02-19] MEDS ORDERED: ETON1VAG3 (14:19)
[2021-02-19] MEDS ORDERED: FERR325T3 (14:19)
[2021-02-19] MEDS ORDERED: ACET-683 PO (14:19)
--- NOTE | 2021-02-19 14:52 | REP ---
INDICATION: injury, pain COMPARISON: None. TECHNIQUE: Four views left ankle. FINDINGS: There is no evidence of acute fracture, dislocation, or intrinsic bone disease.The ankle mortise is anatomic. IMPRESSION: No fracture or dislocation. <Electronically signed by Benny Jamison > 02/19/21 [id number]
[2021-02-19] MEDS ORDERED: IBUPROFEN 800 MG TAB PO ONE (15:40)
--- NOTE | 2021-02-19 16:29 | REP ---
INDICATION: L tib TTP COMPARISON: None. TECHNIQUE: AP and lateral left lower leg. FINDINGS: There is no evidence of acute fracture, dislocation, or intrinsic bone disease. IMPRESSION: No fracture or dislocation. <Electronically signed by Benny Jamison > 02/19/21 [id number]
--- NOTE | 2021-02-19 16:32 | REP ---
INDICATION: L foot pain COMPARISON: None. TECHNIQUE: Four views left foot. FINDINGS: There is no evidence of acute fracture, dislocation, or intrinsic bone disease.There is mild hallux valgus deformity. IMPRESSION: No fracture or dislocation. <Electronically signed by Benny Jamison > 02/19/21 [id number]
== END 2021-02-19 17:46 | disposition home or self-care (01) ==
LOC: M ED 14:01
DX: S93.602A Unspecified sprain of left foot, initial encounter (principal); S93.402A Sprain of unspecified ligament of left ankle, initial encounter; S90.32XA Contusion of left foot, initial encounter; X50.0XXA Overexertion from strenuous movement or load, initial encounter; Y92.019 Unspecified place in single-family (private) house as the place of occurrence of the external cause; Y93.9 Activity, unspecified; Y99.9 Unspecified external cause status; R00.0 Tachycardia, unspecified; I45.81 Long QT syndrome; F41.9 Anxiety disorder, unspecified; Z79.899 Other long term (current) drug therapy; Z79.3 Long term (current) use of hormonal contraceptives

== ENCOUNTER → 2021-04-29 | Outpatient (REF) | payer OTHER ==
[~2021-04-29] MED LIST changes: +ACET-683 PO; +ETON1VAG3; +FERR325T3
== END ==
LOC: M LAB REF 19:53
PROVIDERS: ATTEND Physician Assistant
DX: R30.0 Dysuria (principal)

== ENCOUNTER → 2024-09-21 | Outpatient (CLI) | payer OTHER ==
[~2024-09-21] MED LIST changes: -CLIN150C15 PO; +CLIN150C17 PO; +FERR324T2 PO
[2024-09-21 11:21] LABS: BASO # 0.1 10^3/uL (0.0-0.2); BASO % 0.7 % (0.0-1.0); EOS # 0.2 10^3/uL (0.0-0.5); EOS % 1.8 % (0.0-3.0); HEMOGLOBIN 12.5 g/dl (12.0-15.5); LYMPH # 2.4 10^3/uL (1.5-5.0); MEAN CORPUSCULAR HEMOGLOBIN 22.1 pg (27.0-33.0); MEAN CORPUSCULAR HGB CONC 30.5 g/dl (32.0-36.5); MEAN CORPUSCULAR VOLUME 72.4 fl (80.0-96.0); MONO # 0.5 10^3/uL (0.0-0.8); MONO % 5.7 % (2.0-8.0); NEUTROPHILS # 5.4 10^3/uL (1.5-8.5); NEUTROPHILS % 63.6 % (36.0-66.0); PLATELET COUNT, AUTOMATED 244 10^3/uL (150-450); RED BLOOD COUNT 5.66 10^6/uL (4.00-5.40); WHITE BLOOD COUNT 8.5 10^3/uL (4.0-10.0)
[2024-09-21 11:35] LABS: ERYTHROCYTE SEDIMENTATION RATE 40 mm/hr (0-20)
[2024-09-21 11:45] LABS: URIC ACID 4.8 MG/DL (3.1-7.8)
[2024-09-21 11:48] LABS: BLOOD UREA NITROGEN 10 MG/DL (9-23); C REACTIVE PROTEIN QUANTITATIV 0.74 MG/DL (<1.0); CALCIUM LEVEL 9.3 MG/DL (8.5-10.1); CARBON DIOXIDE LEVEL 25 MMOL/L (20-31); CHLORIDE LEVEL 108 MMOL/L (98-107); CREATININE FOR GFR 0.79 MG/DL (0.55-1.30); GLOMERULAR FILTRATION RATE > 60.0 (>60); GLUCOSE, FASTING 102 MG/DL (60-100); POTASSIUM SERUM 3.8 MMOL/L (3.5-5.1); SODIUM LEVEL 142 MMOL/L (136-145)
[2024-09-22 14:43] LABS: ANA SCREEN, IFA NEGATIVE (NEGATIVE)
== END ==
LOC: M LAB 10:37
PROVIDERS: ATTEND Physician Assistant
DX: M25.50 Pain in unspecified joint (principal)

== ENCOUNTER → 2024-12-14 | Outpatient (CLI) | payer OTHER, MEDICAID | LOC: M SOG 07:52 | PROVIDERS: ATTEND Physician Assistant | DX: M79.605 Pain in left leg (principal) ==

== ENCOUNTER 2025-04-25 16:47 | Emergency (ER) | payer OTHER ==
[~2025-04-25] VITALS: Ht 162.6 cm; Wt 110.2 kg
[2025-04-25 18:54] LABS: KETONE, URINE AUTO RFX NEGATIVE (NEGATIVE); MUCUS, URINE RFX SMALL (NEGATIVE); NITRITE, URINE AUTO RFX NEGATIVE (NEGATIVE); RBC, URINE AUTO RFX 2 /HPF (0-3); SQUAM EPITHELIAL CELL UR AURFX 16 /HPF (0-6); WBC, URINE AUTO RFX 9 /HPF (0-3)
[2025-04-25 18:55] LABS: LEUKOCYTE ESTERASE UR AUTO RFX TRACE (NEGATIVE)
[2025-04-25] MEDS ORDERED: BACT800T5 PO (19:01)
[2025-04-25 19:08] VITALS: BP 133/79; TEMP 98.5; O2SAT 98
[2025-04-25] MEDS: BACTRIM 160MG/800MG DS TAB PO ONE (19:13)
== END 2025-04-25 19:17 | disposition home or self-care (01) ==
LOC: M ED 16:47
DX: N39.0 Urinary tract infection, site not specified (principal); S60.811A Abrasion of right wrist, initial encounter; S60.812A Abrasion of left wrist, initial encounter; W55.03XA Scratched by cat, initial encounter; Y92.019 Unspecified place in single-family (private) house as the place of occurrence of the external cause; Y93.9 Activity, unspecified; Y99.9 Unspecified external cause status; Z88.8 Allergy status to other drugs, medicaments and biological substances; Z79.1 Long term (current) use of non-steroidal anti-inflammatories (NSAID); Z79.899 Other long term (current) drug therapy

== ENCOUNTER → 2025-05-30 | Outpatient (CLI) | payer OTHER ==
[~2025-05-30] MED LIST changes: -ACE65ERTAB PO; +ACET-1593 PO; +BACT800T5 PO
== END ==
LOC: M LAB 13:07
PROVIDERS: ATTEND Nurse Practitioner Family
DX: Z30.42 Encounter for surveillance of injectable contraceptive (principal)

== ENCOUNTER → 2025-07-02 | Outpatient (CLI) | payer OTHER | LOC: M SOG 09:49 | PROVIDERS: ATTEND Orthopaedic Surgery | DX: M25.561 Pain in right knee (principal) ==

== ENCOUNTER → 2025-07-28 | Outpatient (CLI) | payer OTHER | LOC: M LAB 14:08 | PROVIDERS: ATTEND Student in an Organized Health Care Education/Training Program | DX: N64.52 Nipple discharge (principal) ==

== ENCOUNTER → 2025-07-29 | Outpatient (REF) | payer OTHER | LOC: M LAB REF 14:24 | PROVIDERS: ATTEND Specialist | DX: N39.0 Urinary tract infection, site not specified (principal) ==

== ENCOUNTER → 2025-07-31 | Outpatient (REF) | payer OTHER ==
[2025-07-31 19:16] LABS: Trichomonas vaginalis (AMP) NOT DETECTED (NEGATIVE)
[2025-07-31 19:39] LABS: GC DNA AMPLIFICATION NEGATIVE (NEGATIVE)
== END ==
LOC: M LAB REF 17:48
PROVIDERS: ATTEND Physician Assistant
DX: R30.0 Dysuria (principal)

== ENCOUNTER → 2025-08-19 | Outpatient (CLI) | payer OTHER | LOC: M WHC 08:58 | PROVIDERS: ATTEND Student in an Organized Health Care Education/Training Program | DX: N64.52 Nipple discharge (principal); R92.322 Mammographic fibroglandular density, left breast; R92.8 Other abnormal and inconclusive findings on diagnostic imaging of breast ==

== ENCOUNTER → 2025-09-01 | Outpatient (CLI) | payer OTHER ==
[~2025-09-01] MED LIST changes: +ACET-1387 PO; -ACET-1593 PO
== END ==
LOC: M WUC 12:36
PROVIDERS: ATTEND Student in an Organized Health Care Education/Training Program
DX: N64.52 Nipple discharge (principal)